=== PATIENT | female | born 1960 | race Caucasian/White ===

== ENCOUNTER 2023-12-31 19:59 | Emergency (ER) | payer MEDICARE ==
[~2023-12-31] VITALS: Ht 165.1 cm; Wt 102.7 kg
[2023-12-31 20:01] VITALS: TEMP 98
[2023-12-31 20:47] LABS: BASOPHILS % (AUTO) 0.3 % (0.0-2.0); EOSINOPHILS % (AUTO) 0.2 % (1.0-6.0); HEMATOCRIT 38.5 % (36-46); HEMOGLOBIN 13.3 g/dL (12.0-16.0); LYMPHOCYTES # (AUTO) 2.5 K/uL (1.0-4.8); LYMPHOCYTES % (AUTO) 15.9 % (22.0-44.0); MEAN CORPUSCULAR HEMOGLOBIN 32.4 pg (26.0-34.0); MEAN CORPUSCULAR HGB CONC 34.5 G/dL (31.0-37.0); MEAN CORPUSCULAR VOLUME 94 fL (80-100); MONOCYTES # (AUTO) 1.1 K/uL (0.1-1.0); MONOCYTES % (AUTO) 6.7 % (2.0-9.0); NEUTROPHILS # (AUTO) 12.2 K/uL (1.8-7.7); NEUTROPHILS % (AUTO) 76.9 % (40.0-70.0); PLATELET COUNT (AUTO) 291 K/uL (150-450); RED BLOOD CELL COUNT(AUTO) 4.09 MIL/uL (4.00-5.20); RED CELL DISTRIBUTION WIDTH 12.3 % (11.5-14.5); WHITE BLOOD COUNT (AUTO) 15.8 K/uL (4.5-11.0)
[2023-12-31 20:50] LABS: LIPASE 56 U/L (16-77)
[2023-12-31 20:58] LABS: TROPONIN I-HIGH SENSITIVITY 4 ng/L (<51)
[2024-01-01 00:23] LABS: APPEARANCE,URINE HAZY (CLEAR); BILIRUBIN,URINE NEGATIVE (NEGATIVE); COLOR,URINE YELLOW (YELLOW); GLUCOSE, URINE (UA) NEGATIVE (NEGATIVE); KETONES,URINE NEGATIVE (NEGATIVE); LEUKOCYTE ESTERASE ,URINE LARGE (NEGATIVE); NITRATE,URINE POSITIVE (NEGATIVE); OCCULT BLOOD,URINE LARGE (NEGATIVE); PROTEIN,URINE 30-70 mg/dL (NEGATIVE); SPECIFIC GRAVITIY, URINE 1.011 (1.003-1.030); UROBILINOGEN,URINE <=1.0 mg/dL (<=1.0)
[2024-01-01 00:40] LABS: BACTERIA,URINE Few /HPF (None Seen); SQUAMOUS EPITHELIAL CELL,UR Few /LPF (None Seen); WBC,URINE 26-50 /HPF (0-5)
[2024-01-01] MEDS: CefTRIAXone SODIUM 1 GM/VIAL IM ONE (01:14)
[2024-01-01] MEDS: LIDOCAINE/PF 1% 2 ML VIAL IM ONE (01:14)
[2024-01-01] MEDS ORDERED: CefTRIAXone 1 GM/DEXTROSE 50 ML IV ONE (01:15)
[2024-01-01 01:26] LABS: ANION GAP 13 mmol/L (8-16); CALCIUM, TOTAL 9.9 mg/dL (8.8-10.5); CARBON DIOXIDE 28 mmol/L (22-29); CHLORIDE 99 mmol/L (98-107); CREATININE 0.74 mg/dL (0.60-1.30); GLOMERULAR FILTR. RATE CALC > 60 mL/min (>60); GLUCOSE,RANDOM 127 mg/dL (70-110); POTASSIUM 3.9 mmol/L (3.5-5.1); SODIUM SERUM 140 mmol/L (136-145); UREA NITROGEN, BLOOD 9 mg/dL (7-18)
[2024-01-01 01:32] LABS: ALANINE AMINOTRANSFERASE 64 U/L (12-78); ALBUMIN 3.8 g/dL (3.4-5.0); ALKALINE PHOSPHATASE 97 U/L (46-116); ASPARTATE AMINOTRANSFERASE 43 U/L (15-37); BILIRUBIN,TOTAL 0.7 mg/dL (0.1-1.0); TOTAL PROTEIN, SERUM 8.4 g/dL (6.4-8.2)
[2024-01-01] MEDS ORDERED: CEPH-558 PO (01:42)
[2024-01-01] MEDS: MAGNESIUM CITRATE [LEMON] 300 ML ORAL SOLUTION PO ONE (01:59)
[2024-01-01 02:03] VITALS: BP 140/82; PULSE 80; RESP 16
[2024-01-01] MEDS ORDERED: LISINOP/HCTZ PO (10:51)
== END 2024-01-01 02:09 | disposition home or self-care (01) ==
LOC: EMS 19:59
DX: N39.0 Urinary tract infection, site not specified (principal); I10 Essential (primary) hypertension
CPT/HCPCS: 99285; 74176; 76700; 80048; 80076; 81001; 83690; 84484; 85025; 36415; 87086; 87186; 93005; 96372; J0696; J3490

== ENCOUNTER 2024-01-01 10:49 | Emergency (ER) | payer MEDICARE ==
[~2024-01-01] VITALS: Ht 165.1 cm; Wt 113.6 kg
[~2024-01-01 10:49] MED LIST: CEPH-558 PO
[2024-01-01] MEDS ORDERED: LISINOP/HCTZ PO (10:51)
[2024-01-01 10:55] VITALS: BP 109/45; PULSE 87; RESP 18; TEMP 98
== END 2024-01-01 11:36 | disposition home or self-care (01) ==
LOC: EMS 10:49
DX: K80.20 Calculus of gallbladder without cholecystitis without obstruction (principal); I10 Essential (primary) hypertension
CPT/HCPCS: 99281; Z7502

== ENCOUNTER 2024-01-11 03:10 | Emergency (ER) | payer MEDICARE ==
[~2024-01-11] VITALS: Ht 165.1 cm; Wt 102.0 kg
[~2024-01-11 03:10] MED LIST changes: +LISINOP/HCTZ PO
[2024-01-11 03:13] VITALS: TEMP 98.1
[2024-01-11] MEDS: PERTUSS(ACELL),DIPH,TET/PF 0.5 ML SYRINGE [ADULT] IM. ONE (06:41)
[2024-01-11 06:54] VITALS: BP 128/69; PULSE 72; RESP 16
[2024-01-11] MEDS ORDERED: LISI-657 PO (12:01)
== END 2024-01-11 07:10 | disposition home or self-care (01) ==
LOC: EMS 03:10
DX: S61.212A Laceration without foreign body of right middle finger without damage to nail, initial encounter (principal); I10 Essential (primary) hypertension; W23.0XXA Caught, crushed, jammed, or pinched between moving objects, initial encounter; Y93.89 Activity, other specified; Y92.89 Other specified places as the place of occurrence of the external cause; Y99.8 Other external cause status
CPT/HCPCS: 12001; 90471; 90715; 99283

== ENCOUNTER 2024-01-11 11:29 | Emergency (ER) | payer MEDICARE ==
[~2024-01-11] VITALS: Ht 165.1 cm; Wt 102.0 kg
[2024-01-11 11:36] VITALS: BP 130/74; PULSE 87; RESP 16; TEMP 98.4
[2024-01-11] MEDS ORDERED: LISI-657 PO (12:01)
[2024-01-11] MEDS: LIDOCAINE 1% 10 ML VIAL ID ONE (12:08)
[2024-01-11] MEDS: BACITRACIN 0.9 GM PACKET OINTMENT TP ONE (13:26)
== END 2024-01-11 13:40 | disposition home or self-care (01) ==
LOC: EMS 11:29
DX: S61.212A Laceration without foreign body of right middle finger without damage to nail, initial encounter (principal); I10 Essential (primary) hypertension; W23.0XXA Caught, crushed, jammed, or pinched between moving objects, initial encounter; Y93.89 Activity, other specified; Y92.89 Other specified places as the place of occurrence of the external cause; Y99.8 Other external cause status
CPT/HCPCS: 99282; 12001; J3490

== ENCOUNTER 2024-01-13 12:19 | Emergency (ER) | payer MEDICARE ==
[~2024-01-13] VITALS: Ht 165.1 cm; Wt 101.8 kg
[~2024-01-13 12:19] MED LIST changes: -CEPH-558 PO; +LISI-657 PO; -LISINOP/HCTZ PO
[2024-01-13 12:27] VITALS: TEMP 98.7
[2024-01-13] MEDS: BACITRACIN 0.9 GM PACKET OINTMENT TP ONE (13:19)
[2024-01-13 13:30] VITALS: BP 130/60; PULSE 65; RESP 18
== END 2024-01-13 13:46 | disposition home or self-care (01) ==
LOC: EMS 12:19
DX: S61.212D Laceration without foreign body of right middle finger without damage to nail, subsequent encounter (principal); Z48.00 Encounter for change or removal of nonsurgical wound dressing; X58.XXXD Exposure to other specified factors, subsequent encounter
CPT/HCPCS: 99282; Z7502; Z7610

== ENCOUNTER 2024-01-17 13:13 | Emergency (ER) | payer MEDICARE ==
[~2024-01-17] VITALS: Ht 167.6 cm; Wt 72.7 kg
[2024-01-17 13:21] VITALS: BP 114/53; PULSE 69; RESP 18; TEMP 98.7
== END 2024-01-17 14:10 | disposition home or self-care (01) ==
LOC: EMS 13:13
DX: S61.212D Laceration without foreign body of right middle finger without damage to nail, subsequent encounter (principal); I10 Essential (primary) hypertension; X58.XXXD Exposure to other specified factors, subsequent encounter
CPT/HCPCS: 99281; Z7502

== ENCOUNTER 2025-02-08 22:29 | Emergency (ER) | payer MEDICARE ==
[~2025-02-08] VITALS: Ht 165.1 cm; Wt 109.1 kg
[2025-02-08 23:26] VITALS: BP 152/63; PULSE 79; RESP 16; TEMP 97.9; O2SAT 96
[2025-02-08] MEDS ORDERED: IBUP-1492 PO (23:34)
[2025-02-08] MEDS ORDERED: TRAM50TA5 PO (23:34)
[2025-02-08] MEDS: IBUPROFEN 600 MG TABLET PO ONE (23:41)
== END 2025-02-09 00:39 | disposition home or self-care (01) ==
LOC: EMS 22:29
DX: S92.514A Nondisplaced fracture of proximal phalanx of right lesser toe(s), initial encounter for closed fracture (principal); I10 Essential (primary) hypertension; Z79.899 Other long term (current) drug therapy; W22.03XA Walked into furniture, initial encounter; Y93.89 Activity, other specified; Y92.89 Other specified places as the place of occurrence of the external cause; Y99.8 Other external cause status
CPT/HCPCS: 99283